=== PATIENT | male | born 1940 | race Caucasian/White ===

== ENCOUNTER → 2023-09-16 11:26 | Outpatient (REF) | payer OTHER, SELFPAY ==
[2023-09-16 12:02] LABS: Hematocrit 33.7 % (39.0-52.0); Hemoglobin 11.5 g/dL (13.0-18.0); Mean Corp Hgb Conc. 34.1 g/dL (33.0-37.0); Mean Corpuscular Hgb 31.3 pg (27.0-31.0); Mean Corpuscular Volume 91.6 fL (80.0-94.0); Platelet Count 142 10^3/uL (130-400); Red Blood Cell Count 3.68 10^6/uL (4.70-6.10); White Blood Cell Count 4.1 10^3/uL (4.8-10.8)
[2023-09-16 13:10] LABS: Blood Urea Nitrogen 21 mg/dl (9-20); Calcium 8.7 mg/dl (8.4-10.2); Carbon Dioxide 25 mmol/L (22-30); Chloride 108 mmol/L (98-107); Glucose 106 mg/dl (70-99); Potassium 4.6 mmol/L (3.5-5.1); Sodium 139 mmol/L (135-145); eGFR > 60.00
== END ==
LOC: OLABWHC 11:26
PROVIDERS: ATTENDING PHYSICIAN Family Medicine
DX: I10 Essential (primary) hypertension (principal); L24.A0 Irritant contact dermatitis due to friction or contact with body fluids, unspecified; B96.1 Klebsiella pneumoniae [K. pneumoniae] as the cause of diseases classified elsewhere
CPT/HCPCS: 36415; 80048; 85027

== ENCOUNTER → 2023-09-23 15:02 | Outpatient (REF) | payer OTHER, SELFPAY ==
[2023-09-23 15:43] LABS: % Basophils 0.8 % (0-2); % Eosinophils 1.6 % (0-6); % Immature Granulocytes 0.4 % (0-0.5); % Lymphocytes 30.8 % (20.5-51.1); % Monocytes 8.5 % (1.7-9.3); % Neutrophils 57.9 % (42.2-75.2); Absolute Eosinophils 0.1 10^3/uL (0-0.7); Absolute Lymphocytes 1.6 10^3/uL (1.2-3.4); Absolute Monocytes 0.4 10^3/uL (0.1-0.6); Absolute Neutrophils 2.9 10^3/uL (1.4-6.5); Hematocrit 33.6 % (39.0-52.0); Hemoglobin 11.6 g/dL (13.0-18.0); Mean Corp Hgb Conc. 34.5 g/dL (33.0-37.0); Mean Corpuscular Hgb 31.5 pg (27.0-31.0); Mean Corpuscular Volume 91.3 fL (80.0-94.0); Mean Platelet Volume 12.6 fL (7.4-10.4); Nucleated Red Blood Cells % 0 % (-); Red Blood Cell Count 3.68 10^6/uL (4.70-6.10); Red Cell Dist. Width 12.8 % (11.5-14.5)
[2023-09-23 15:44] LABS: Urine Albumin Trace (Neg - Trace); Urine Bilirubin Negative (Negative); Urine Character Clear (Clear); Urine Color Yellow; Urine Glucose Negative (Negative); Urine Ketone Negative (Negative); Urine Leukocyte Trace (Negative); Urine Nitrite Negative (Negative); Urine Occult Blood Negative (Negative); Urine Urobilinogen Negative (Neg - 1+)
[2023-09-23 15:52] LABS: Urine Bacteria Many (Negative); Urine Red Blood Cell None Seen /HPF (0-2); Urine White Cell 26-30 /HPF (0-5)
[2023-09-23 15:58] LABS: Platelet Count 88 10^3/uL (130-400)
[2023-09-23 16:03] LABS: ALT (SGPT) < 10 U/L (0-50); AST (SGOT) 18 U/L (17-59); Albumin 3.6 g/dl (3.5-5.0); Alkaline Phosphatase 102 U/L (38-126); Blood Urea Nitrogen 13 mg/dl (9-20); Calcium 8.8 mg/dl (8.4-10.2); Carbon Dioxide 26 mmol/L (22-30); Chloride 101 mmol/L (98-107); Glucose 105 mg/dl (70-99); HDL Cholesterol 26 mg/dl; LDL Cholesterol, Calculated 37 mg/dl; Potassium 4.1 mmol/L (3.5-5.1); Sodium 137 mmol/L (135-145); Total Bilirubin 1.1 mg/dl (0.2-1.3); Total Cholesterol 108 mg/dl (50-199); Total Protein 5.8 g/dl (6.3-8.2); Triglyceride 229 mg/dl (10-149); Very Low Density Lipoprotein 45 mg/dl (0-30); eGFR > 60.00
[2023-09-23 16:17] LABS: Free T4 0.97 ng/dl (0.78-2.19)
[2023-09-23 16:31] LABS: TSH 1.68 uIU/ml (0.47-4.68)
== END ==
LOC: OLABWPC 15:02
PROVIDERS: ATTENDING PHYSICIAN Registered Nurse
DX: I10 Essential (primary) hypertension (principal); N39.42 Incontinence without sensory awareness; R35.0 Frequency of micturition
CPT/HCPCS: 36415; 80053; 80061; 81003; 81015; 84439; 84443; 85025; 87077; 87086; 87186

== ENCOUNTER → 2023-12-20 11:54 | Outpatient (REF) | payer OTHER, SELFPAY ==
[2023-12-20 15:58] LABS: Urine Albumin Trace (Neg - Trace); Urine Bilirubin Negative (Negative); Urine Character Slightly Cloudy (Clear); Urine Color Yellow; Urine Glucose Negative (Negative); Urine Ketone Trace (Negative); Urine Leukocyte 2+ (Negative); Urine Nitrite Positive (Negative); Urine Occult Blood 4+ (Negative); Urine Specific Gravity 1.025 (<1.030); Urine Urobilinogen Negative (Neg - 1+)
[2023-12-20 16:26] LABS: Urine Bacteria Many (Negative); Urine Red Blood Cell 50-60 /HPF (0-2); Urine Squamous Cell 0-2 /LPF (Few); Urine White Cell 80-90 /HPF (0-5)
== END ==
LOC: OLAB 11:54
PROVIDERS: ATTENDING PHYSICIAN Family Medicine
DX: N39.0 Urinary tract infection, site not specified (principal)
CPT/HCPCS: 81003; 81015; 87077; 87086; 87186

== ENCOUNTER → 2023-12-21 10:53 | Outpatient (REF) | payer OTHER, SELFPAY ==
[2023-12-21 12:17] LABS: Hematocrit 40.7 % (39.0-52.0); Mean Corp Hgb Conc. 34.4 g/dL (33.0-37.0); Mean Corpuscular Hgb 30.9 pg (27.0-31.0); Mean Corpuscular Volume 89.8 fL (80.0-94.0); Mean Platelet Volume 11.6 fL (7.4-10.4); Platelet Count 99 10^3/uL (130-400); Red Blood Cell Count 4.53 10^6/uL (4.70-6.10); Red Cell Dist. Width 12.8 % (11.5-14.5); White Blood Cell Count 5.5 10^3/uL (4.8-10.8)
[2023-12-21 12:25] LABS: Blood Urea Nitrogen 16 mg/dl (9-20); Calcium 9.1 mg/dl (8.4-10.2); Carbon Dioxide 27 mmol/L (22-30); Chloride 102 mmol/L (98-107); Glucose 114 mg/dl (70-99); Potassium 4.2 mmol/L (3.5-5.1); Sodium 138 mmol/L (135-145); eGFR > 60.00
== END ==
LOC: OLABWHC 10:53
PROVIDERS: ATTENDING PHYSICIAN Family Medicine
DX: I10 Essential (primary) hypertension (principal); G20.C Parkinsonism, unspecified
CPT/HCPCS: 36415; 80048; 85027

== ENCOUNTER → 2024-02-02 09:23 | Outpatient (REF) | payer OTHER, SELFPAY ==
[2024-02-02 11:36] LABS: Blood Urea Nitrogen 17 mg/dl (9-20); Calcium 8.8 mg/dl (8.4-10.2); Carbon Dioxide 27 mmol/L (22-30); Chloride 105 mmol/L (98-107); Glucose 111 mg/dl (70-99); Potassium 4.1 mmol/L (3.5-5.1); Sodium 139 mmol/L (135-145); eGFR > 60.00
== END ==
LOC: OLABWHC 09:23
PROVIDERS: ATTENDING PHYSICIAN Family Medicine
DX: G20.A1 Parkinson's disease without dyskinesia, without mention of fluctuations (principal); I10 Essential (primary) hypertension
CPT/HCPCS: 36415; 80048

== ENCOUNTER → 2024-05-11 11:09 | Outpatient (REF) | payer OTHER, SELFPAY ==
[2024-05-11 12:23] LABS: % Basophils 0.8 % (0-2); % Eosinophils 2.3 % (0-6); % Immature Granulocytes 0.8 % (0-0.5); % Lymphocytes 35.9 % (20.5-51.1); % Monocytes 8.2 % (1.7-9.3); Absolute Eosinophils 0.1 10^3/uL (0-0.7); Absolute Lymphocytes 1.7 10^3/uL (1.2-3.4); Absolute Monocytes 0.4 10^3/uL (0.1-0.6); Absolute Neutrophils 2.5 10^3/uL (1.4-6.5); Hematocrit 37.5 % (39.0-52.0); Hemoglobin 13.5 g/dL (13.0-18.0); Mean Corpuscular Hgb 32.3 pg (27.0-31.0); Mean Corpuscular Volume 89.7 fL (80.0-94.0); Mean Platelet Volume 12.3 fL (7.4-10.4); Nucleated Red Blood Cells % 0 % (-); Platelet Count 113 10^3/uL (130-400); Red Blood Cell Count 4.18 10^6/uL (4.70-6.10); Red Cell Dist. Width 12.1 % (11.5-14.5); White Blood Cell Count 4.8 10^3/uL (4.8-10.8)
[2024-05-11 12:37] LABS: ALT (SGPT) 11 U/L (0-50); AST (SGOT) 16 U/L (17-59); Albumin 4.1 g/dl (3.5-5.0); Alkaline Phosphatase 73 U/L (38-126); Blood Urea Nitrogen 17 mg/dl (9-20); Calcium 8.7 mg/dl (8.4-10.2); Carbon Dioxide 25 mmol/L (22-30); Chloride 103 mmol/L (98-107); Glucose 110 mg/dl (70-99); HDL Cholesterol 31 mg/dl; LDL Cholesterol, Calculated 61 mg/dl; Potassium 4.3 mmol/L (3.5-5.1); Sodium 141 mmol/L (135-145); Total Bilirubin 0.8 mg/dl (0.2-1.3); Total Cholesterol 145 mg/dl (50-199); Total Protein 6.1 g/dl (6.3-8.2); Triglyceride 269 mg/dl (10-149); Very Low Density Lipoprotein 53 mg/dl (0-30); eGFR > 60.00
[2024-05-11 13:06] LABS: TSH 2.19 uIU/ml (0.47-4.68); TSH Reflex To Free T4 2.19 uIU/ml (0.47-4.68)
== END ==
LOC: OLABWPC 11:09
PROVIDERS: ATTENDING PHYSICIAN Registered Nurse
DX: G20.A1 Parkinson's disease without dyskinesia, without mention of fluctuations (principal); R73.01 Impaired fasting glucose
CPT/HCPCS: 36415; 80053; 80061; 84443; 85025

== ENCOUNTER → 2024-08-08 10:04 | Outpatient (REF) | payer OTHER, SELFPAY ==
[2024-08-08 11:31] LABS: Urine Albumin Trace (Neg - Trace); Urine Bilirubin Negative (Negative); Urine Character Slightly Cloudy (Clear); Urine Color Yellow; Urine Glucose Negative (Negative); Urine Ketone Trace (Negative); Urine Leukocyte 2+ (Negative); Urine Nitrite Positive (Negative); Urine Occult Blood Negative (Negative); Urine Urobilinogen Negative (Neg - 1+)
[2024-08-08 12:10] LABS: Urine Bacteria Many (Negative); Urine Squamous Cell 0-2 /LPF (Few); Urine White Cell 50-60 /HPF (0-5)
== END ==
LOC: OLABWPC 10:04
PROVIDERS: ATTENDING PHYSICIAN Family Medicine
DX: R30.0 Dysuria (principal)
CPT/HCPCS: 81003; 81015; 87077; 87086; 87186

== ENCOUNTER → 2024-11-12 10:07 | Outpatient (REF) | payer OTHER, SELFPAY | LOC: MRI 3T 10:07 | PROVIDERS: ATTENDING PHYSICIAN Specialist; FAMILY PHYSICIAN Registered Nurse | DX: R26.81 Unsteadiness on feet (principal) | CPT/HCPCS: 70551 ==

== ENCOUNTER → 2024-11-15 10:56 | Outpatient (REF) | payer OTHER, SELFPAY ==
[2024-11-15 12:24] LABS: % Basophils 0.8 % (0-2); % Eosinophils 2.5 % (0-6); % Immature Granulocytes 0.4 % (0-0.5); % Lymphocytes 35.6 % (20.5-51.1); % Monocytes 8.5 % (1.7-9.3); % Neutrophils 52.2 % (42.2-75.2); Absolute Eosinophils 0.1 10^3/uL (0-0.7); Absolute Lymphocytes 1.7 10^3/uL (1.2-3.4); Absolute Monocytes 0.4 10^3/uL (0.1-0.6); Absolute Neutrophils 2.5 10^3/uL (1.4-6.5); Hematocrit 37.1 % (39.0-52.0); Hemoglobin 12.9 g/dL (13.0-18.0); Mean Corp Hgb Conc. 34.8 g/dL (33.0-37.0); Mean Corpuscular Volume 92.1 fL (80.0-94.0); Mean Platelet Volume 12.1 fL (7.4-10.4); Nucleated Red Blood Cells % 0 % (-); Platelet Count 100 10^3/uL (130-400); Red Blood Cell Count 4.03 10^6/uL (4.70-6.10); Red Cell Dist. Width 12.6 % (11.5-14.5); White Blood Cell Count 4.8 10^3/uL (4.8-10.8)
[2024-11-15 12:30] LABS: ALT (SGPT) 12 U/L (0-50); AST (SGOT) 15 U/L (17-59); Albumin 3.9 g/dl (3.5-5.0); Alkaline Phosphatase 60 U/L (38-126); Blood Urea Nitrogen 12 mg/dl (9-20); Calcium 8.7 mg/dl (8.4-10.2); Carbon Dioxide 27 mmol/L (22-30); Chloride 108 mmol/L (98-107); Glucose 116 mg/dl (70-99); HDL Cholesterol 28 mg/dl; LDL Cholesterol, Calculated 58 mg/dl; Sodium 143 mmol/L (135-145); Total Bilirubin 0.9 mg/dl (0.2-1.3); Total Cholesterol 137 mg/dl (50-199); Total Protein 6.1 g/dl (6.3-8.2); Triglyceride 257 mg/dl (10-149); Very Low Density Lipoprotein 51 mg/dl (0-30); eGFR > 60.00
[2024-11-15 12:42] LABS: Free T4 0.86 ng/dl (0.78-2.19)
== END ==
LOC: OLABWPC 10:56
PROVIDERS: ATTENDING PHYSICIAN Registered Nurse
DX: G20.A1 Parkinson's disease without dyskinesia, without mention of fluctuations (principal); I10 Essential (primary) hypertension; R26.2 Difficulty in walking, not elsewhere classified; R13.13 Dysphagia, pharyngeal phase; F41.9 Anxiety disorder, unspecified
CPT/HCPCS: 36415; 80053; 80061; 84439; 84443; 85025

== ENCOUNTER 2025-04-01 16:24 | Emergency (ER) | payer OTHER, SELFPAY ==
[2025-04-01 16:28] VITALS: BP 128/73
[2025-04-01 16:51] LABS: Hematocrit 40.1 % (39.0-52.0); Hemoglobin 13.9 g/dL (13.0-18.0); Mean Corp Hgb Conc. 34.7 g/dL (33.0-37.0); Mean Corpuscular Volume 92.0 fL (80.0-94.0); Nucleated Red Blood Cells % 0 % (-); Platelet Count 121 10^3/uL (130-400); Red Cell Dist. Width 12.3 % (11.5-14.5)
[2025-04-01 17:02] LABS: ALT (SGPT) < 10 U/L (0-50); AST (SGOT) 19 U/L (17-59); Albumin 4.6 g/dl (3.5-5.0); Alkaline Phosphatase 63 U/L (38-126); Blood Urea Nitrogen 19 mg/dl (9-20); Calcium 8.8 mg/dl (8.4-10.2); Carbon Dioxide 26 mmol/L (22-30); Chloride 104 mmol/L (98-107); Glucose 150 mg/dl (70-99); Potassium 4.3 mmol/L (3.5-5.1); Sodium 138 mmol/L (135-145); Total Protein 7.2 g/dl (6.3-8.2); eGFR > 60.00
[2025-04-01 20:38] VITALS: BMI 26.6
[2025-04-01 20:41] VITALS: BP 124/69
[2025-04-01 20:43] LABS: Urine Character Slightly Cloudy (Clear)
--- NOTE | 2025-04-01 20:43 | EDRN ---
Pt's son reports pt had a fever yesterday and his legs were weak. Pt resides at [facility]. Pt was reportedly lethargic yesterday and 'out of it' which is not normal. Staff did a covid test which was negative. Son says pt gets like
this when he has a uti. Pt was taken to urgent care first then sent to ED for evaluation. Pt was unable to provide urine specimen while at the urgent care. Pt has no complaints at this time, smiling and interactive with staff. Pt denies pain.
[2025-04-01 21:01] VITALS: BP 134/91
[2025-04-01 21:06] LABS: Urine White Cell 30-40 /HPF (0-5)
[2025-04-01] MEDS: KEFLEX 500 MG PO (21:55)
--- NOTE | 2025-04-01 23:23 | ED.GENMED ---
History of Present Illness
General
Chief Complaint: Weakness
Source: patient and family
Exam Limitations: none
Time Seen by Provider: 04/01/25 19:47
Nursing documentation reviewed up to this point in time: agreed with
History of Present Illness
History of Present Illness:
Patient to ED for report of increasing weakness/fatigue over the past 24 hours. Sons report that he has had similar symptoms in the past associated with UTI. Denies fever/chills, n/v/d. No recent illnness. Denies any pain
Past History
Past History
ED Past Medical History: HTN
ED Past Surgical History: None
Social History
Tobacco: Non-smoker
Alcohol: None
Drug: None
Living: assisted living
Review of Systems
Review of Systems
Allergies reviewed?: Yes
All Other Systems: ROS reviewed and negative except as documented in HPI and ROS
Constitutional: Reports fatigue
EENT: Reports no symptoms
Respiratory: Reports no symptoms
Cardiac: Reports no symptoms
ABD/GI: Reports no symptoms
: Reports no symptoms
Musculoskeletal: Reports no symptoms
Skin: Reports no symptoms
Neurological: Reports weakness
Psychiatric: Reports no symptoms
Phy Exam
General Physical Exam
General Presentation: no apparent distress
General age: appears stated age
General Skin: warm and dry
General Habitus: elderly
General Mental: alert
Cardiovascular Exam
Cardiovascular Exam: regular rate/rhythm and no edema
Pulmonary Exam
Pulmonary Exam: lungs clear and no respiratory distress
Gastrointestinal Exam
Gastrointestinal Exam: non tender, soft, no organomegaly, no pulsatile mass, non distended and no cva tenderness
Musculoskeletal Exam
Musculoskeletal Exam: full ROM and neuro vasc intact
Skin Exam
Skin Exam: normal color, warm/dry and no rash
Psychiatric Exam
Psychiatric Exam: normal mood/affect
Course
Orders/Labs/Results
Orders:
Orders
04/01/25 16:31
CR Chest - 2 Views Urgent
Comment:
Reason For Exam: suspected infection
04/01/25 16:35
Complete Blood Count/With Diff Urgent
Comprehensive Metabolic Panel Urgent
04/01/25 20:27
CT Head W/o Iv Contrast Urgent
Comment:
Reason For Exam: weakness
04/01/25 20:32
Urinalysis Reflex To Culture Urgent
Date Specimen was Collected: 04/01/25
Time Specimen was Collected: 16:31
Urine Microscopic Reflex Cult Urgent
Urine Culture Urgent
SHIRLEY Source: U
Specimen Description:
Date Specimen was Collected: 04/01/25
Time Specimen was Collected: 16:31
04/01/25 21:48
Cephalexin Monohydrate [Keflex] 500 mg PO NOW STA
Abnormal Lab Results
04/01/25 04/01/25
16:35 20:32
RBC 4.36 L 10^6/uL
(4.70-6.10)
MCH 31.9 H pg
(27.0-31.0)
Plt Count 121 L 10^3/uL
(130-400)
MPV 11.1 H fL
(7.4-10.4)
Absolute Monos (auto) 0.7 H 10^3/uL
(0.1-0.6)
Lymphocytes % 19.7 L %
(20.5-51.1)
Monocytes % 10.2 H %
(1.7-9.3)
Glucose 150 H mg/dl
(70-99)
Urine Ketones 1+ A
(Negative)
Ur Occult Blood Reflex 1+ A
(Negative)
Urine Nitrite (Reflex) Positive A
(Negative)
Leukocyte Esterase Rfl 2+ A
(Negative)
Urine RBC 3-6 A /HPF
(0-2)
Urine WBC (Reflex) 30-40 A /HPF
(0-5)
Urine Bacteria (Reflex) Many A
(Negative)
Urine Albumin (Reflex) 2+ A
(Neg - Trace)
04/01/25 16:35
04/01/25 16:35
Vital Signs
Initial and Last Documented VS:
Initial Vital Signs
Temp Pulse Resp BP Pulse Ox
98.6 F 87 19 128/73 95
04/01/25 16:28 04/01/25 16:28 04/01/25 16:28 04/01/25 16:28 04/01/25 16:28
Last Documented Vital Signs
Temp Pulse Resp BP Pulse Ox
98.7 F 91 14 134/91 95
04/01/25 20:42 04/01/25 21:01 04/01/25 21:01 04/01/25 21:01 04/01/25 16:28
*Radiology
Radiology exam reviewed: radiology read reviewed
*Pulse Oximetry
SaO2: 95
Oxygen Mode of Delivery: Room air
Patient hypoxic: no
*Critical Care Note
Total Time (30-74mins, 75-104mins- exclusive of procedures): Not Applicable
Update Note
Update Note:
Patient to ED for eval of weakness/fatigue. VSS, he remains afebrile. WBC normal, CMP stable. UA post for blood, nitrates. WBC 30-40. WIll [address] on Keflex 500mg bid x 7 days. He is discharged home and will follow upw ith PCP this week. Given
instructins on s/s to return to ED and he is agreeable to plan.
ED Attending Note
-
Portions of this chart may have been created with voice recognition software.� Occasional wrong word or��sound alike� substitutions may have occurred due to the inherent limitations of voice recognition software.
Discharge Plan
Departure
Patient Disposition: Home (Routine Discharge)
Date of Disposition: 04/01/25
Time of Disposition: 21:52
Patient with high blood pressure during this ER visit?: No
Condition: Good
Covid-19: Not Applicable
Discharge Problem:
Urinary tract infection in male
Instructions: Urinary tract infection in adults - ED discharge instructions
Prescriptions:
New
cephalexin 500 mg capsule
500 mg PO BID 7 Days Qty: 14 0RF
No Action
amlodipine [Norvasc] 5 mg Tablet
5 mg PO DAILY
acetaminophen [Tylenol Extra Strength] 500 mg Tablet
500 mg PO TID
magnesium hydroxide [Milk of Magnesia] 400 mg/5 mL Suspension
2,400 mg PO HSPRN PRN (Reason: if no bm by 2nd day)
bisacodyl [Dulcolax (bisacodyl)] 10 mg Suppository
10 mg IN [id number] PRN (Reason: if no bm by 3rd day)
lisinopril 10 mg Tablet
10 mg PO DAILY
carbidopa-levodopa 25-100 mg Tablet
1 tab PO BID
carbidopa-levodopa 25-100 mg Tablet
2 tab PO HS
melatonin 5 mg Tablet
5 mg PO HS
acetaminophen 325 mg Tablet
650 mg PO Q4HPRN PRN (Reason: mild pain /fever >100.4) Qty: 1 0RF
aspirin 81 mg Tablet,Chewable
81 mg PO DAILY
escitalopram oxalate 5 mg Tablet
5 mg PO DAILY
Balmex Diaper Rash 11.3 % Cream
1 applic TOPICAL TID
Rx Instructions:
apply to buttocks
icosapent ethyl 1 gram Capsule
1 g PO BID
Referrals:
Shantanu Kidd CRNP [Family Provider, Internal Medicine] - Follow up in 2-3 days
Interventions
Interventions:
*Risk Screen - Suicide Last Done: 04/01/25 16:28
*General Assessment Last Done: 04/01/25 16:28
*Neglect/Abuse Screening Last Done: 04/01/25 16:28
*ED- Fall Risk Assessment Last Done: 04/01/25 20:39
*Nursing Disposition Last Done: 04/01/25 22:06
ED- Cardiac Assessment Last Done: 04/01/25 21:03
ED- Neurological Assessment Last Done: 04/01/25 21:03
ED- Pulmonary Assessment Last Done: 04/01/25 21:03
ED-Skin Assessment Last Done: 04/01/25 21:03
Discharge Date and Time
Discharge Date/Time: 04/01/25 22:06
Print Language: [place]
== END 2025-04-01 22:06 | disposition home or self-care (01) ==
LOC: EMR 16:24
PROVIDERS: EMERGENCY PHYSICIAN Emergency Medicine; FAMILY PHYSICIAN Registered Nurse
DX: N39.0 Urinary tract infection, site not specified (principal); I10 Essential (primary) hypertension; Z87.440 Personal history of urinary (tract) infections
CPT/HCPCS: 99284; 70450; 71046; 80053; 81003; 81015; 85025; 87077; 87086